=== PATIENT | male | born 2000 | race Caucasian/White ===

== ENCOUNTER → 2024-09-03 | Day surgery (SDC) | payer OTHER ==
[~2024-09-03] MED LIST: DOXYCYCLINE HY100 MG PO; FENTANYL CITRATE/PF 100MCG/2 ML INJ ONE; GLUCAGON FOR INJ 1 MG VIAL ONE; HYOSCYAMINE SULFATE 0.5 MG/ML INJ ONE; KETAMINE HCL INJ 50 MG/ML 10 ML VIAL ONE; LACTATED RINGER'S 1,000 ML ONE; LIDOCAINE HCL 2% LOCAL INJ 5 ML SDV VIAL INJ ONE; ONDANSETRON HCL INJ 2MG/ML 2ML 2 MG/ML VIAL ONE; PROPOFOL IV EMULSION 10 MG/ML 20 ML VIAL ONE; PROPOFOL IV EMULSION 50 ML IV ONE; SERTRALINE HCL50 MG PO; VITAMIN D31250 MCG PO
[2024-09-03 14:54] VITALS: TEMP 97.8
[2024-09-03 15:20] VITALS: BP 128/80; PULSE 90; RESP 18; O2SAT 99
[2024-09-03 15:23] LABS: WBC,FECAL (FECAL LACTOFERRIN) NEGATIVE (NEGATIVE)
[2024-09-03 15:24] LABS: CDIFF AG QUIK CHEK NEGATIVE (NEGATIVE); CDIFF TOX QUIK CHEK NEGATIVE (NEGATIVE)
[2024-09-04 22:02] LABS: C-REACTIVE PROTEIN 2 mg/L (0-10)
[2024-09-07 07:13] LABS: ENDOMYSIAL ANTIBODIES, IGA Negative (Negative)
[2024-09-07 07:50] LABS: IMMUNOGLOBULIN A 349 mg/dL (90-386); TISSUE TRANSGLUTAMINASE IGA AB <2 U/mL (0-3)
== END | disposition home or self-care (01) ==
LOC: OR 12:40
PROVIDERS: ATTEND Internal Medicine Gastroenterology
DX: K52.9 Noninfective gastroenteritis and colitis, unspecified (principal); K63.5 Polyp of colon; K29.50 Unspecified chronic gastritis without bleeding; K29.80 Duodenitis without bleeding; K31.89 Other diseases of stomach and duodenum; K62.89 Other specified diseases of anus and rectum; K64.8 Other hemorrhoids; K20.90 Esophagitis, unspecified without bleeding; F84.0 Autistic disorder; F41.9 Anxiety disorder, unspecified; E55.9 Vitamin D deficiency, unspecified; Z87.19 Personal history of other diseases of the digestive system; Z79.899 Other long term (current) drug therapy
CPT/HCPCS: 43239; 45380; 45385; 82784; 83516; 83630; 83993; 86140; 86256; 87045; 87177; 87324; 87328; 87449; J1610; J1980; J2003; J2405; J2470; J2704 ×2; J3010; J7121